=== PATIENT | female | born 1970 | race African-American/Black ===

== ENCOUNTER 2019-05-29 17:10 | Emergency (ER) | payer OTHER, SELFPAY ==
[2019-05-29] MEDS ORDERED: Erythromycin Base 0.5% Ophth Oint 3.5 gm Tube ONE (18:36)
== END 2019-05-29 18:50 | disposition home or self-care (01) ==
LOC: MADERS 17:10
DX: H10.89 Other conjunctivitis (principal); I10 Essential (primary) hypertension; E11.9 Type 2 diabetes mellitus without complications; Z79.899 Other long term (current) drug therapy
CPT/HCPCS: 99283

== ENCOUNTER 2021-03-22 14:02 | Outpatient (CLI) | payer MEDICARE ==
[2021-03-22 14:28] LABS: Anion Gap 14 mmol/L (10-20); BUN (Urea Nitrogen) 9 mg/dL (9.8-20.1); Calc. Creatinine Clearance 0 mL/min (70-130); Calcium 9.3 mg/dL (7.8-10.44); Carbon Dioxide 26 mmol/L (22-29); Chloride 106 mmol/L (98-107); Glucose 206 mg/dL (70-105); Potassium 3.4 mmol/L (3.5-5.1); Sodium 143 mmol/L (136-145)
== END 2021-03-22 14:03 | disposition home or self-care (01) ==
LOC: MADLAB 14:02
PROVIDERS: ATTEND Family Medicine
DX: E87.6 Hypokalemia (principal)
CPT/HCPCS: 36415; 80048